=== PATIENT | female | born 1950 ===

== ENCOUNTER 2017-08-21 11:04 | Emergency (ER) | payer MEDICAID ==
[2017-08-21 11:37] VITALS: BP 138/70; PULSE 56; RESP 20; TEMP 97.9; O2SAT 98
[2017-08-21 11:38] VITALS: BMI 35.8
--- NOTE | 2017-08-21 12:09 | ED PDOC ---
HPI: General Adult Time Seen by Provider: 08/21/17 12:04 Chief Complaint (Nursing): Cough, Cold, Congestion Chief Complaint (Provider): cough, congestion History Per: Patient Additional Complaint(s): 67-year-old female presents to emergency department complaining of loss of voice and sore throat for 3 weeks. Patient denies fever or chills. She is tolerating liquids and solids and denies associated vomiting or diarrhea despite triage note stating otherwise. Past Medical History Reviewed: Historical Data, Nursing Documentation, Vital Signs Vital Signs: Last Vital Signs Temp 97.9 F 08/21/17 11:37 Pulse 56 L 08/21/17 11:37 Resp 20 08/21/17 11:37 BP 138/70 08/21/17 11:37 Pulse Ox 98 08/21/17 12:09 - Medical History PMH: HTN, Hypercholesterolemia - Surgical History Other surgeries: tubal ligation, colon surgery - Family History Family History: States: No Known Family Hx - Living Arrangements Living Arrangements: With Family - Social History Current smoker - smoking cessation education provided: No Alcohol: Social Drugs: Denies - Home Medications Home Medications: Ambulatory Orders Medication Instructions Recorded Azithromycin [Zithromax] 250 mg PO DAILY #6 tab 08/21/17 Methylprednisolone [Medrol Dose 4 mg PO ASDIR #21 mg 08/21/17 Pack (21 tabs)] - Allergies Allergies/Adverse Reactions: Allergies Allergy/AdvReac Type Severity Reaction Status Date / Time aspirin Allergy VOMITING Verified 08/21/17 12:01 Review of Systems ROS Statement: Except As Marked, All Systems Reviewed And Found Negative Constitutional: Negative for: Fever ENT: Positive for: Other (sore throat with loss of voice for 3 weeks) Cardiovascular: Negative for: Chest Pain Respiratory: Negative for: Cough Gastrointestinal: Negative for: Nausea, Vomiting Physical Exam - Reviewed Nursing Documentation Reviewed: Yes Vital Signs Reviewed: Yes - Physical Exam Appears: Positive for: Well, Non-toxic, No Acute Distress Skin: Negative for: Rash Eye Exam: Positive for: Normal appearance ENT: Positive for: TM Is/Are (normal bilaterally), Pharyngeal Erythema, Tonsillar Swelling. Negative for: Tonsillar Exudate Cardiovascular/Chest: Positive for: Regular Rate, Rhythm Respiratory: Positive for: Normal Breath Sounds Neurologic/Psych: Positive for: Alert, Oriented - ECG O2 Sat by Pulse Oximetry: 98 Pulse Ox Interpretation: Normal Medical Decision Making Medical Decision Making: Impression: laryngitis PO tylenol given in ED. Rx given for z-pack and medrol dose pack. Advised PMD follow up in 1-2 days. Disposition - Clinical Impression Clinical Impression: Laryngitis - Patient ED Disposition Is Patient to be Admitted: No Counseled Patient/Family Regarding: Diagnosis, Need For Followup, Rx Given - Disposition Referrals: [facility] [Outside] Disposition: Routine/Home Disposition Time: 12:41 Condition: STABLE Additional Instructions: Take rx meds as directed. Tylenol as needed for pain. Drink plenty of fluids. Follow up with clinic in 2-3 days. Prescriptions: Azithromycin [Zithromax] 250 mg PO DAILY #6 tab Methylprednisolone [Medrol Dose Pack (21 tabs)] 4 mg PO ASDIR #21 mg Instructions: Laryngitis (ED) Forms: [facility] (Urdu)
== END 2017-08-21 13:17 | disposition home or self-care (01) ==
LOC: H.ER 11:04
DX: J04.0 Acute laryngitis (principal)

== ENCOUNTER 2018-05-18 20:26 | Emergency (ER) | payer OTHER, MEDICARE, MEDICAID ==
[2018-05-18 20:26] VITALS: BMI 29.2
[2018-05-18 20:34] VITALS: TEMP 98.5
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
[2018-05-18 23:20] VITALS: BP 137/81; PULSE 65; RESP 16; O2SAT 98
--- NOTE | 2018-05-19 07:32 | RAD ---
PROCEDURE: Left Foot Radiographs. HISTORY: TOE PAIN COMPARISON: None. FINDINGS: BONES: Normal. No fracture. JOINTS: Normal. SOFT TISSUES: Normal. OTHER FINDINGS: None. IMPRESSION: Normal left foot radiographs.
== END 2018-05-18 23:20 | disposition home or self-care (01) ==
LOC: H.ER 20:26
DX: M25.512 Pain in left shoulder (principal); M79.605 Pain in left leg; S09.90XA Unspecified injury of head, initial encounter; V43.52XA Car driver injured in collision with other type car in traffic accident, initial encounter; Y92.410 Unspecified street and highway as the place of occurrence of the external cause; E78.00 Pure hypercholesterolemia, unspecified; I10 Essential (primary) hypertension

== ENCOUNTER 2018-12-12 16:14 | Emergency (ER) | payer MEDICAID, MEDICARE, OTHER ==
[2018-12-12 16:14] VITALS: BMI 29.2
[2018-12-12 17:28] VITALS: BP 140/70; PULSE 56; RESP 15; TEMP 98.1; O2SAT 97
--- NOTE | 2018-12-12 18:14 | ED PDOC ---
HPI: Trauma/Fall - HPI Time Seen by Provider: 12/12/18 18:00 Chief Complaint (Nursing): Trauma Chief Complaint (Provider): Neck Pain History Per: Patient History/Exam Limitations: no limitations Onset/Duration Of Symptoms: Days (x1) Additional Complaint(s): Patient is a 68 y/o female with a PMHx of HTN and hypercholesterolemia who presents to the ED for evaluation of right-sided neck pain for the past five days. Patient states she feels like she injured her neck while moving and cleaning. Patient was seen by PCP for the same complaint and given a prescription for Flexeril and Naprosyn but denies any relief. Patient scales the severity of the pain as a 10/10. PCP: Dr. Bib Jones Past Medical History Reviewed: Historical Data, Nursing Documentation, Vital Signs Vital Signs: Last Vital Signs Temp 98.1 F 12/12/18 17:23 Pulse 56 L 12/12/18 17:23 Resp 15 12/12/18 17:23 BP 140/70 12/12/18 17:23 Pulse Ox 97 12/12/18 17:23 - Medical History PMH: HTN, Hypercholesterolemia Denies: Chronic Kidney Disease - Surgical History Surgical History: No Surg Hx - Family History Family History: States: Unknown Family Hx - Immunization History Hx Tetanus Toxoid Vaccination: No Hx Influenza Vaccination: No Hx Pneumococcal Vaccination: No - Home Medications Home Medications: Ambulatory Orders Medication Instructions Recorded Atorvastatin [Lipitor] 20 mg PO HS 02/09/18 Linagliptin [Tradjenta] 5 mg PO DAILY 02/09/18 Losartan/Hydrochlorothiazide 1 tab PO DAILY 02/09/18 [Losartan-Hctz 100-12.5 mg Tab] Metoprolol Succinate XL [Toprol XL] 100 mg PO DAILY 02/09/18 Naproxen 500 mg PO BID PRN 02/09/18 Omeprazole 20 mg PO DAILY 02/09/18 Sertraline [Zoloft] 50 mg PO DAILY 02/09/18 amLODIPine [Norvasc] 5 mg PO DAILY 02/09/18 diaZEpam [Valium] 5 mg PO Q6 PRN #4 tab 05/18/18 diaZEpam [Valium] 5 mg PO Q8 PRN #6 tab 12/12/18 - Allergies Allergies/Adverse Reactions: Allergies Allergy/AdvReac Type Severity Reaction Status Date / Time aspirin Allergy VOMITING Verified 12/12/18 17:28 Review of Systems ROS Statement: Except As Marked, All Systems Reviewed And Found Negative Musculoskeletal: Positive for: Neck Pain (right-sided) Physical Exam - Reviewed Nursing Documentation Reviewed: Yes Vital Signs Reviewed: Yes - Physical Exam Appears: Positive for: No Acute Distress Head Exam: Positive for: ATRAUMATIC, NORMAL INSPECTION, NORMOCEPHALIC Skin: Positive for: Normal Color, Warm, DRY Eye Exam: Positive for: EOMI, Normal appearance, PERRL Neck: Positive for: Normal (right-sided tenderness and spasm), Supple, Decreased ROM Cardiovascular/Chest: Positive for: Regular Rate, Rhythm. Negative for: Murmur Respiratory: Positive for: Normal Breath Sounds. Negative for: Respiratory Distress Gastrointestinal/Abdominal: Positive for: Normal Exam, Soft. Negative for: Tenderness Back: Positive for: Normal Inspection. Negative for: L CVA Tenderness, R CVA Tenderness, Vertebral Tenderness Extremity: Positive for: Normal ROM. Negative for: Pedal Edema, Deformity Neurologic/Psych: Positive for: Alert, Oriented. Negative for: Motor/Sensory Deficits - ECG O2 Sat by Pulse Oximetry: 97 (RA) Pulse Ox Interpretation: Normal Medical Decision Making Medical Decision Making: Time: 1804 Impression: Torticollis Scribe Attestation: Documented by Ishan Blum, acting as a scribe for MARKUS Flores. Provider Scribe Attestation: All medical record entries made by the Scribe were at my direction and personally dictated by me. I have reviewed the chart and agree that the record accurately reflects my personal performance of the history, physical exam, medical decision making, and the department course for this patient. I have also personally directed, reviewed, and agree with the discharge instructions and disposition. Disposition - Clinical Impression Clinical Impression: Nayanllis Counseled Patient/Family Regarding: Studies Performed, Diagnosis, Need For Followup, Rx Given - Disposition Disposition: Routine/Home Disposition Time: 18:15 Condition: FAIR Prescriptions: diaZEpam [Valium] 5 mg PO Q8 PRN #6 tab PRN Reason: Muscle Spasm Instructions: Torticollis, Adult Print Language: VINCENTIAN
== END 2018-12-12 18:23 | disposition home or self-care (01) ==
LOC: H.ER 16:14
DX: M43.6 Torticollis (principal); E78.00 Pure hypercholesterolemia, unspecified; I10 Essential (primary) hypertension